=== PATIENT | female | born 1940 | race Caucasian/White ===

== ENCOUNTER 2023-07-04 11:02 | Inpatient (IN) | payer OTHER, MEDICAID ==
[~2023-07-04] VITALS: Ht 165.1 cm; Wt 86.6 kg
[2023-07-04 11:33] VITALS: BP_SYST 122; PULSE 109; RESP 20; TEMP 97.2; O2SAT 96
[2023-07-04 11:47] LABS: BASOPHILS # (AUTO) 0.1 K/uL (0.0-0.2); BASOPHILS % (AUTO) 0.5 % (0.0-2.0); EOSINOPHILS % (AUTO) 0.4 % (0.0-4.0); HEMATOCRIT 35.1 % (36-48); HEMOGLOBIN 11.2 g/dL (12.0-16.0); LYMPHOCYTES # (AUTO) 0.8 K/uL (1.0-5.5); LYMPHOCYTES % (AUTO) 6.8 % (20.5-51.5); MEAN CORPUSCULAR HEMOGLOBIN 29 pg (27-31); MEAN CORPUSCULAR HGB CONC 32 % (32-36); MEAN CORPUSCULAR VOLUME 91 fL (79.0-98.0); MONOCYTES # (AUTO) 0.9 K/uL (0.0-1.0); MONOCYTES % (AUTO) 7.7 % (1.7-9.3); NEUTROPHILS # (AUTO) 9.5 K/uL (1.8-7.7); NEUTROPHILS % (AUTO) 84.6 % (40.0-70.0); PLATELET COUNT (AUTO) 290 K/uL (130-430); RED BLOOD CELL COUNT(AUTO) 3.84 MIL/uL (4.2-6.2); RED CELL DISTRIBUTION WIDTH 13.9 % (9.0-15.0); WHITE BLOOD COUNT (AUTO) 11.3 K/uL (4.8-10.8)
[2023-07-04 12:01] LABS: ANION GAP 5 (5-15); CALCIUM 8.5 mg/dL (8.4-11.0); CARBON DIOXIDE 26 mmol/L (23-29); CHLORIDE 105 mmol/L (98-107); CREATININE 1.56 mg/dL (0.55-1.30); GLUCOSE 134 mg/dL (74-106); POTASSIUM 4.4 mmol/L (3.5-5.1); SODIUM SERUM 136 mmol/L (136-145); UREA NITROGEN, BLOOD 26 mg/dL (8-21)
[2023-07-04 12:06] LABS: ALANINE AMINOTRANSFERASE 32 U/L (12-78); ALBUMIN 3.4 g/dL (3.4-4.8); ASPARTATE AMINOTRANSFERASE 28 U/L (10-37); TOTAL BILIRUBIN 0.5 mg/dL (0.0-1.0)
[2023-07-04] MEDS: dilTIAZem HCL IVP 5 MG/ML VIAL IVP ONE (14:47)
[2023-07-04] MEDS ORDERED: FERR325T30 PO (14:55)
[2023-07-04] MEDS ORDERED: DONE10TA4 PO (14:55)
[2023-07-04] MEDS ORDERED: IMO2 PO (14:55)
[2023-07-04] MEDS ORDERED: LEVO75TA7 PO (14:55)
[2023-07-04] MEDS ORDERED: CITA40TA16 PO (14:55)
[2023-07-04] MEDS ORDERED: LOSA100T24 PO (14:55)
[2023-07-04] MEDS ORDERED: HYDR12.585 PO (14:55)
[2023-07-04] MEDS ORDERED: SODI650T PO (14:55)
[2023-07-04] MEDS ORDERED: SITA100T11 PO (14:55)
[2023-07-04] MEDS ORDERED: MEMA10TA56 PO (14:55)
[2023-07-04] MEDS: DILTIAZEM HCL 30 MG TABLET PO ONE (15:08)
[2023-07-04] MEDS ORDERED: ONDANSETRON HCL 4 MG/2 ML VIAL IVP PRN (15:45)
[2023-07-04] MEDS ORDERED: ACETAMINOPHEN 325 MG TABLET PO PRN (15:45)
[2023-07-04] MEDS ORDERED: MORPHINE 2 MG/ML INJ. SYRINGE IVP PRN (15:45)
[2023-07-04] MEDS ORDERED: HYDROcodone/ACETAMIN 10-325 MG TAB PO PRN (15:45)
[2023-07-04] MEDS: ACETAMINOPHEN 500 MG TABLET PO ONE (16:02)
[2023-07-04 17:51] VITALS: O2SAT 96
[2023-07-04 18:06] VITALS: BP_SYST 108; PULSE 96; RESP 16; TEMP 97.8
[2023-07-04] MEDS: NACL 0.9% 1,000 ML IV ONE (18:59)
[2023-07-04 20:10] VITALS: BP_SYST 122; PULSE 90; RESP 20; TEMP 99; O2SAT 96
[2023-07-04] MEDS: DONEPEZIL HCL 5 MG TABLET (ARICEPT) PO SCH (21:02)
[2023-07-04] MEDS: ACETAMINOPHEN 325 MG TABLET PO PRN (21:02)
[2023-07-04] MEDS: MEMANTINE HCL 5 MG TABLET PO SCH (21:03)
[2023-07-04] MEDS: METOPROLOL TARTRATE 25 MG TABLET PO SCH (21:03)
[2023-07-04] MEDS: MELATONIN 5 MG TABLET PO ONE ×2 (22:48→22:52)
[2023-07-04 23:30] VITALS: BP_SYST 105; PULSE 76; RESP 20; TEMP 97.5; O2SAT 94
[2023-07-05] MEDS: HYDROcodone/ACETAMIN 5-325 MG TAB (NORCO/ VICODIN) PO PRN (02:48)
[2023-07-05 06:17] LABS: BASOPHILS % (AUTO) 0.4 % (0.0-2.0); EOSINOPHILS # (AUTO) 0.3 K/uL (0.0-0.4); EOSINOPHILS % (AUTO) 3.5 % (0.0-4.0); HEMATOCRIT 33.3 % (36-48); HEMOGLOBIN 10.7 g/dL (12.0-16.0); LYMPHOCYTES # (AUTO) 1.5 K/uL (1.0-5.5); LYMPHOCYTES % (AUTO) 16.2 % (20.5-51.5); MEAN CORPUSCULAR HEMOGLOBIN 29 pg (27-31); MEAN CORPUSCULAR HGB CONC 32 % (32-36); MEAN CORPUSCULAR VOLUME 92 fL (79.0-98.0); MONOCYTES # (AUTO) 0.9 K/uL (0.0-1.0); MONOCYTES % (AUTO) 9.6 % (1.7-9.3); NEUTROPHILS # (AUTO) 6.4 K/uL (1.8-7.7); NEUTROPHILS % (AUTO) 70.3 % (40.0-70.0); PLATELET COUNT (AUTO) 272 K/uL (130-430); RED BLOOD CELL COUNT(AUTO) 3.63 MIL/uL (4.2-6.2); WHITE BLOOD COUNT (AUTO) 9.1 K/uL (4.8-10.8)
[2023-07-05 06:48] LABS: ALANINE AMINOTRANSFERASE 48 U/L (12-78); ALBUMIN 3.1 g/dL (3.4-4.8); ANION GAP 7 (5-15); CALCIUM 8.1 mg/dL (8.4-11.0); CARBON DIOXIDE 26 mmol/L (23-29); CHLORIDE 106 mmol/L (98-107); CREATININE 1.42 mg/dL (0.55-1.30); GLUCOSE 130 mg/dL (74-106); POTASSIUM 4.6 mmol/L (3.5-5.1); SODIUM SERUM 139 mmol/L (136-145); TOTAL BILIRUBIN 0.5 mg/dL (0.0-1.0); TOTAL PROTEIN, SERUM 6.6 g/dL (6.4-8.3); UREA NITROGEN, BLOOD 29 mg/dL (8-21)
[2023-07-05 07:05] LABS: ASPARTATE AMINOTRANSFERASE 53 U/L (10-37)
[2023-07-05 08:14] VITALS: BP_SYST 150; PULSE 76; RESP 15; TEMP 98.1; O2SAT 98
[2023-07-05] MEDS: LEVOTHYROXINE SODIUM 0.075 MG TABLET PO SCH (09:24)
[2023-07-05] MEDS: METOPROLOL TARTRATE 25 MG TABLET PO ONE (10:09)
[2023-07-05] MEDS: APIXABAN 2.5 MG TABLET PO ONE (10:13)
[2023-07-05 10:20] VITALS: O2SAT 98
[2023-07-05 11:04] VITALS: BP_SYST 122; PULSE 87; RESP 16; TEMP 99.1; O2SAT 93
[2023-07-05] MEDS: LEVOFLOXACIN 250 MG/D5W 50 ML IV SCH (11:47)
[2023-07-05] MEDS ORDERED: INSULIN REGULAR, HUMAN 100 UNITS/ML, 3 ML VIAL (humuLIN R) SUBCUT PRN (13:30)
[2023-07-05] MEDS ORDERED: GLUCOSE (DEXTROSE) ORAL GEL -Adults PO PRN (13:30)
[2023-07-05] MEDS ORDERED: DEXTROSE 50% JECT 50 ML DISP.SYRIN IVP PRN (13:30)
[2023-07-05] MEDS: metroNIDAZOLE 500 mg/NS 100 ML IV SCH (14:30)
[2023-07-05 15:37] VITALS: BP_SYST 108; PULSE 59; RESP 16; TEMP 97.4; O2SAT 96
[2023-07-05 20:00] VITALS: O2SAT 95
[2023-07-05 20:15] VITALS: BP_SYST 138; PULSE 95; RESP 18; TEMP 98.6; O2SAT 95
[2023-07-05] MEDS: METOPROLOL TARTRATE 50 MG TABLET PO SCH (22:13)
[2023-07-05] MEDS: MELATONIN 5 MG TABLET PO SCH (22:14)
[2023-07-05] MEDS: APIXABAN 2.5 MG TABLET PO SCH (22:16)
[2023-07-06] VITALS (9 sets, daily range): BP systolic 103–149; PULSE 66–80; RESP 16–20; TEMP 96.9–98.3; O2SAT 92–97
[2023-07-06 05:22] LABS: BASOPHILS % (AUTO) 0.4 % (0.0-2.0); EOSINOPHILS # (AUTO) 0.3 K/uL (0.0-0.4); HEMATOCRIT 33.7 % (36-48); HEMOGLOBIN 10.9 g/dL (12.0-16.0); LYMPHOCYTES # (AUTO) 1.4 K/uL (1.0-5.5); LYMPHOCYTES % (AUTO) 14.7 % (20.5-51.5); MEAN CORPUSCULAR HEMOGLOBIN 29 pg (27-31); MEAN CORPUSCULAR HGB CONC 32 % (32-36); MEAN CORPUSCULAR VOLUME 91 fL (79.0-98.0); MONOCYTES # (AUTO) 0.8 K/uL (0.0-1.0); MONOCYTES % (AUTO) 8.5 % (1.7-9.3); NEUTROPHILS % (AUTO) 73.4 % (40.0-70.0); PLATELET COUNT (AUTO) 252 K/uL (130-430); RED CELL DISTRIBUTION WIDTH 13.7 % (9.0-15.0); WHITE BLOOD COUNT (AUTO) 9.6 K/uL (4.8-10.8)
[2023-07-06 05:54] LABS: ALANINE AMINOTRANSFERASE 56 U/L (12-78); ANION GAP 7 (5-15); ASPARTATE AMINOTRANSFERASE 41 U/L (10-37); CALCIUM 8.2 mg/dL (8.4-11.0); CARBON DIOXIDE 25 mmol/L (23-29); CHLORIDE 105 mmol/L (98-107); CREATININE 1.29 mg/dL (0.55-1.30); GLUCOSE 120 mg/dL (74-106); POTASSIUM 4.7 mmol/L (3.5-5.1); SODIUM SERUM 137 mmol/L (136-145); TOTAL BILIRUBIN 0.4 mg/dL (0.0-1.0); TOTAL PROTEIN, SERUM 6.4 g/dL (6.4-8.3); UREA NITROGEN, BLOOD 29 mg/dL (8-21)
[2023-07-06] MEDS: LOSARTAN POTASSIUM 25 MG TABLET PO SCH (08:38)
[2023-07-06] MEDS: MAGNESIUM CITRATE 300 ML ORAL SOLUTION PO ONE (18:54)
[2023-07-06] MEDS: BISACODYL 5 MG TABLET.DR (DULCOLAX) PO ONE (18:54)
[2023-07-07 00:42] VITALS: BP_SYST 150; PULSE 83; RESP 17; TEMP 98.5; O2SAT 96
[2023-07-07 06:25] LABS: BASOPHILS % (AUTO) 0.3 % (0.0-2.0); EOSINOPHILS # (AUTO) 0.2 K/uL (0.0-0.4); EOSINOPHILS % (AUTO) 1.7 % (0.0-4.0); HEMATOCRIT 36.2 % (36-48); HEMOGLOBIN 11.4 g/dL (12.0-16.0); LYMPHOCYTES % (AUTO) 9.5 % (20.5-51.5); MEAN CORPUSCULAR HEMOGLOBIN 29 pg (27-31); MEAN CORPUSCULAR HGB CONC 32 % (32-36); MEAN CORPUSCULAR VOLUME 91 fL (79.0-98.0); NEUTROPHILS # (AUTO) 8.7 K/uL (1.8-7.7); NEUTROPHILS % (AUTO) 79.5 % (40.0-70.0); PLATELET COUNT (AUTO) 278 K/uL (130-430); RED BLOOD CELL COUNT(AUTO) 3.98 MIL/uL (4.2-6.2); RED CELL DISTRIBUTION WIDTH 13.7 % (9.0-15.0); WHITE BLOOD COUNT (AUTO) 10.9 K/uL (4.8-10.8)
[2023-07-07 06:42] LABS: INR 1.1 (0.8-1.2); PROTHROMBIN TIME 11.7 SECS (9.5-12.5)
[2023-07-07 06:53] LABS: ANION GAP 7 (5-15); CALCIUM 8.5 mg/dL (8.4-11.0); CARBON DIOXIDE 24 mmol/L (23-29); CHLORIDE 102 mmol/L (98-107); CREATININE 1.23 mg/dL (0.55-1.30); GLUCOSE 129 mg/dL (74-106); SODIUM SERUM 133 mmol/L (136-145); UREA NITROGEN, BLOOD 23 mg/dL (8-21)
[2023-07-07 08:00] VITALS: BP_SYST 130; PULSE 76; RESP 16; TEMP 97; O2SAT 96
[2023-07-07 11:20] VITALS: BP_SYST 152; PULSE 91; RESP 16; TEMP 97.1; O2SAT 96
[2023-07-07] MEDS: MIDAZOLAM HCL 5 MG/5 ML VIAL ONE (11:55)
[2023-07-07] MEDS: fentaNYL CITRATE/PF 100 MCG/2 ML AMP ONE (11:55)
[2023-07-07 12:58] VITALS: BP_SYST 131; PULSE 86; RESP 18; TEMP 98.2; O2SAT 95
[2023-07-07] MEDS ORDERED: METO-442 PO (15:54)
[2023-07-07] MEDS ORDERED: LEVO250T73 PO (15:54)
[2023-07-07] MEDS ORDERED: METR-154 PO (15:54)
[2023-07-07] MEDS ORDERED: APIX2.5T PO (15:54)
[2023-07-07] MEDS ORDERED: LOSA-412 PO (15:54)
[2023-07-07 16:34] VITALS: BP_SYST 111; PULSE 93; RESP 16; TEMP 96.2; O2SAT 96
[2023-07-07 16:40] VITALS: BP_SYST 111; PULSE 93; RESP 16; TEMP 96.2; O2SAT 96
== END 2023-07-07 18:26 | disposition home health service (06) | DRG 386 ==
LOC: SED 11:02 → STU 15:43 → SMU 07-06 09:00
PROVIDERS: ADMIT Family Medicine; ATTEND Family Medicine
PROC: 0DBK8ZZ Excision of Ascending Colon, Via Natural or Artificial Opening Endoscopic (ICD-10-PCS; principal; 2023-07-07 11:00)
DX: K51.30 Ulcerative (chronic) rectosigmoiditis without complications (principal); N17.9 Acute kidney failure, unspecified; K62.3 Rectal prolapse; I48.91 Unspecified atrial fibrillation; D64.9 Anemia, unspecified; E11.22 Type 2 diabetes mellitus with diabetic chronic kidney disease; N18.9 Chronic kidney disease, unspecified; K63.5 Polyp of colon; E03.9 Hypothyroidism, unspecified; F03.90 Unspecified dementia, unspecified severity, without behavioral disturbance, psychotic disturbance, mood disturbance, and anxiety; I12.9 Hypertensive chronic kidney disease with stage 1 through stage 4 chronic kidney disease, or unspecified chronic kidney disease; K57.30 Diverticulosis of large intestine without perforation or abscess without bleeding; Z95.0 Presence of cardiac pacemaker; Z90.49 Acquired absence of other specified parts of digestive tract
CPT/HCPCS: 36415; 45385; 71045; 80048; 80053; 82948; 83037; 83880; 84484; 85025; 85610; 85730; 88305; 93005; 96374; 97110-GP; 97116-GP; 97530-GP; 99291; G0378; J1815; J1956; J2250; J3010; J3490